=== PATIENT | female | born 1935 | race Two or more races ===

== ENCOUNTER 2023-09-05 15:56 | Emergency (ER) | payer OTHER ==
[~2023-09-05] VITALS: Ht 152.4 cm; Wt 56.7 kg
[2023-09-05] MEDS ORDERED: DONE10TA44 PO (16:18)
[2023-09-05] MEDS ORDERED: ROPI1TAB6 PO (16:18)
[2023-09-05] MEDS ORDERED: MEMA10TA PO (16:18)
[2023-09-05] MEDS ORDERED: FERR-68 PO (16:18)
[2023-09-05] MEDS ORDERED: QUET50TA PO (16:18)
[2023-09-05 16:26] LABS: BASOPHILS # (AUTO) 0.1 K/UL (0.0-0.2); EOSINOPHILS # (AUTO) 0.6 K/uL (0.0-0.7); EOSINOPHILS % (AUTO) 6.6 % (0.0-7.0); HEMATOCRIT 36.1 % (31.2-41.9); HEMOGLOBIN 12.1 g/dL (10.9-14.3); LYMPHOCYTES # (AUTO) 3.6 K/uL (0.8-4.8); MEAN CORPUSCULAR HEMOGLOBIN 33.2 uug (24.7-32.8); MEAN CORPUSCULAR HGB CONC 34 g/dL (32.3-35.6); MEAN CORPUSCULAR VOLUME 99.3 fL (75.5-95.3); MONOCYTES # (AUTO) 0.6 K/uL (0.1-1.30); MONOCYTES % (AUTO) 7.4 % (0.0-11.0); NEUTROPHILS # (AUTO) 3.5 K/uL (1.8-8.9); PLATELET COUNT (AUTO) 227 K/uL (179-408); RED BLOOD CELL COUNT(AUTO) 3.64 MIL/uL (3.63-4.92); RED CELL DISTRIBUTION WIDTH 13.7 % (12.3-17.7); WHITE BLOOD COUNT (AUTO) 8.4 K/uL (3.8-11.8)
[2023-09-05 16:35] LABS: CALCIUM 8.7 mg/dL (8.5-10.1); CARBON DIOXIDE 26 mmol/L (21-32); CHLORIDE 103 mmol/L (98-107); CREATININE 1.1 mg/dL (0.6-1.3); GLUCOSE 78 mg/dL (74-106); POTASSIUM 3.9 mmol/L (3.5-5.1); SODIUM SERUM 138 mmol/L (136-145); UREA NITROGEN, BLOOD 21 mg/dL (7-18)
[2023-09-05 16:42] LABS: DIFFERENTIAL COMMENT 1
[2023-09-05 16:48] LABS: ALANINE AMINOTRANSFERASE 28 U/L (14-59); ALBUMIN 3.2 g/dL (3.4-5.0); ALKALINE PHOSPHATASE 105 U/L (50-136); ASPARTATE AMINOTRANSFERASE 36 U/L (15-37); BILIRUBIN,DIRECT 0.1 mg/dL (0.0-0.2); BILIRUBIN,TOTAL 0.2 mg/dL (0.2-1.0); NT-PRO BNP 353 pg/mL (0-125); TOTAL PROTEIN, SERUM 7.4 g/dL (6.4-8.2)
[2023-09-05 17:54] VITALS: BP 177/85; O2SAT 99
== END 2023-09-05 18:06 | disposition left against medical advice (07) ==
LOC: ER 15:58
DX: R10.13 Epigastric pain (principal); R11.10 Vomiting, unspecified; R07.89 Other chest pain; Z88.0 Allergy status to penicillin; Z88.2 Allergy status to sulfonamides; Z79.899 Other long term (current) drug therapy
CPT/HCPCS: 36415; 71045; 83690; 84484; 85025; 93005; A4606; A4663